=== PATIENT | male | born 1980 | race African-American/Black ===

== ENCOUNTER 2017-02-28 00:11 | Inpatient (IN) | payer MEDICAID, OTHER ==
[~2017-02-28] VITALS: Ht 152.4 cm; Wt 28.1 kg
[~2017-02-28 00:11] MED LIST: IRON; VITAMINS
[2017-02-28] MEDS ORDERED: PIPERACILLIN/TAZ 3.375G PREMIX 50 ML IV ONE (01:15)
[2017-02-28] MEDS ORDERED: SODIUM CHLORIDE 0.9% 1000ML BAG (SEPSIS BOLUS) IV ONE (01:15)
[2017-02-28] MEDS ORDERED: ACETAMINOPHEN 325MG TABLET PO ONE (01:15)
[2017-02-28] MEDS ORDERED: VANCOMYCIN 1 G PREMIX 200 ML IV ONE (01:15)
[2017-02-28 01:44] LABS: BASOPHILS % 0.4 % (0.0-2.0); EOSINOPHILS % 0.8 % (0.0-5.0); HEMATOCRIT. 35.9 % (42.0-52.0); HEMOGLOBIN. 11.5 g/dL (14.0-18.0); LYMPHOCYTES % 14.5 % (20.0-50.0); MEAN CORPUSCULAR HEMOGLOBIN 24.7 pg (28.0-32.0); MEAN PLATELET VOLUME 6.8 fl (7.4-10.4); MONOCYTES % 14.3 % (2.0-8.0); PLATELET 278 x1000/uL (130-400); RED BLOOD CELL COUNT 4.66 mill/uL (4.7-6.1); RED CELL DISTRIBUTION WIDTH 15.5 % (11.6-14.6)
[2017-02-28 02:01] LABS: CARBON DIOXIDE 30 mEq/L (21-32); CHLORIDE 102 mEq/L (98-107); TROPONIN I < 0.02 ng/mL (0.00-0.04)
[2017-02-28] MEDS ORDERED: POTASSIUM CHLORIDE 20MEQ TABLET SR PO ONE (03:00)
[2017-02-28 09:00] VITALS: BP 92/58
[2017-02-28] MEDS ORDERED: ENOXAPARIN 40MG/0.4ML SYR SUBCUT SCH (09:30)
[2017-02-28] MEDS ORDERED: HYDROCODONE/ACETAMINOPHEN 5/325MG TABLET PO PRN (10:00)
[2017-02-28] MEDS: PANTOPRAZOLE 40MG DR TABLET PO SCH (10:48)
[2017-02-28] MEDS: DEXT 5%/0.45% NACL KCL 20MEQ/L 1,000 ML IV SCH (11:20)
[2017-02-28 12:00] VITALS: BP 97/72
[2017-02-28] MEDS ORDERED: VANCOMYCIN 1 G PREMIX 200 ML IV SCH (12:00)
[2017-02-28] MEDS ORDERED: PIPERACILLIN/TAZ 3.375G PREMIX 50 ML IV SCH (12:00)
[2017-02-28 16:00] VITALS: BP 101/67
[2017-02-28 20:00] VITALS: BP 103/66
[2017-02-28] MEDS: PIPERACILLIN/TAZ 3.375G PREMIX 50 ML IV SCH (21:18)
[2017-02-28 23:55] VITALS: BP 109/63
[2017-03-01] MEDS: VANCOMYCIN 500 MG PREMIX 100 ML IV SCH ×2 (00:09→06:19)
[2017-03-01] MEDS: DEXT 5%/0.45% NACL KCL 20MEQ/L 1,000 ML IV SCH ×2 (00:09→12:17)
[2017-03-01 04:00] VITALS: BP 107/63
[2017-03-01] MEDS: PIPERACILLIN/TAZ 3.375G PREMIX 50 ML IV SCH ×2 (04:50→12:18)
[2017-03-01] MEDS: PANTOPRAZOLE 40MG DR TABLET PO SCH (06:19)
[2017-03-01 06:42] LABS: HEMATOCRIT. 32.1 % (42.0-52.0); HEMOGLOBIN. 10.2 g/dL (14.0-18.0); MEAN CORPUSCULAR HEMOGLOBIN 24.5 pg (28.0-32.0); MEAN CORPUSCULAR VOLUME 77.3 fL (80.0-94.0); MEAN PLATELET VOLUME 7.2 fl (7.4-10.4); PLATELET 259 x1000/uL (130-400); RED BLOOD CELL COUNT 4.15 mill/uL (4.7-6.1); RED CELL DISTRIBUTION WIDTH 15.7 % (11.6-14.6)
[2017-03-01 06:55] LABS: CARBON DIOXIDE 28 mEq/L (21-32); CHLORIDE 109 mEq/L (98-107)
[2017-03-01 08:00] VITALS: BP 98/67
[2017-03-01] MEDS ORDERED: ENOXAPARIN 30MG/0.3ML SYR SUBCUT SCH (09:00)
[2017-03-01 09:07] LABS: CLARITY URINE CLOUDY (CLEAR); COLOR URINE YELLOW (YELLOW); GLUCOSE URINE NEGATIVE (NEGATIVE); KETONES URINE NEGATIVE (NEGATIVE); LEUKOCYTE ESTERASE URINE 3+ (NEGATIVE); NITRITE URINE NEGATIVE (NEGATIVE); OCCULT BLOOD URINE 2+ (NEGATIVE); PH URINE 5.5 (4.5-8.0); PROTEIN URINE 1+ (NEGATIVE); SPECIFIC GRAVITY URINE 1.018 (1.005-1.030); UROBILINOGEN URINE 0.2 E.U./dL (0.2-1.0)
[2017-03-01 10:14] LABS: PLATELET ESTIMATE NORMAL
[2017-03-01] MEDS ORDERED: POTASSIUM CHLORIDE 20MEQ TABLET SR PO NR (11:00)
[2017-03-01] MEDS ORDERED: LIDOCAINE HCL 1% 20ML VIAL (Pyxis) INJ INFIL NR (11:00)
[2017-03-01 12:00] VITALS: BP 105/69
[2017-03-01 14:16] VITALS: BP 105/69
[2017-03-01] MEDS ORDERED: VANCOMYCIN 750 MG PREMIX 150 ML IV SCH (15:00)
[2017-03-01 16:00] VITALS: BP 100/72
[2017-03-01] MEDS ORDERED: SODIUM HYPOCHLORITE 0.125% 473ML SOLUTION TOP SCH (18:30)
== END 2017-03-01 17:55 | disposition home or self-care (01) | DRG 380 ==
LOC: ER 00:22 → EDBEDREQ 01:20 → 8WST 03:30 → EDBEDREQ 03:35 → EDBEDREQSVC 06:39 → ENRESERV 07:00
PROVIDERS: ADMIT Internal Medicine; ATTEND Internal Medicine
DX: L89.159 Pressure ulcer of sacral region, unspecified stage (principal); L89.309 Pressure ulcer of unspecified buttock, unspecified stage; G82.20 Paraplegia, unspecified; R00.0 Tachycardia, unspecified; E87.6 Hypokalemia; D64.9 Anemia, unspecified; Z74.01 Bed confinement status; Z89.522 Acquired absence of left knee; Z89.521 Acquired absence of right knee
CPT/HCPCS: 36415; 71010; 80048; 80053; 80202; 81001; 82962; 83605; 84484; 85025; 87040; 87070; 87077; 87086; 87186; 87205; 96365; 96366; 96367; 99285; J1650; J2543; J3370; J3490; J7030; J7040

== ENCOUNTER 2017-04-23 22:23 | Observation (INO) | payer OTHER ==
[~2017-04-23] VITALS: Ht 152.4 cm; Wt 54.4 kg
[2017-04-24] MEDS ORDERED: SODIUM CHLORIDE 0.9% 1,000 ML IV ONE (02:38)
[2017-04-24 03:03] LABS: BASOPHILS % 0.5 % (0.0-2.0); EOSINOPHILS % 1.9 % (0.0-5.0); HEMATOCRIT. 23.6 % (42.0-52.0); HEMOGLOBIN. 7.4 g/dL (14.0-18.0); LYMPHOCYTES % 25.1 % (20.0-50.0); MEAN CORPUSCULAR HEMOGLOBIN 23.5 pg (28.0-32.0); MEAN CORPUSCULAR VOLUME 74.5 fL (80.0-94.0); MEAN PLATELET VOLUME 5.8 fl (7.4-10.4); NEUTROPHILS % 61.5 % (40.0-76.0); PLATELET 627 x1000/uL (130-400); RED BLOOD CELL COUNT 3.16 mill/uL (4.7-6.1); RED CELL DISTRIBUTION WIDTH 16.3 % (11.6-14.6)
[2017-04-24 03:10] LABS: INR 1.4; PROTHROMBIN TIME 14.3 sec
[2017-04-24 03:17] LABS: CARBON DIOXIDE 29 mEq/L (21-32); CHLORIDE 102 mEq/L (98-107)
[2017-04-24 03:35] LABS: CLARITY URINE TURBID (CLEAR); COLOR URINE DARK YELLOW (YELLOW); GLUCOSE URINE NEGATIVE (NEGATIVE); KETONES URINE NEGATIVE (NEGATIVE); LEUKOCYTE ESTERASE URINE 2+ (NEGATIVE); NITRITE URINE NEGATIVE (NEGATIVE); OCCULT BLOOD URINE TRACE (NEGATIVE); PH URINE >=9.0 (4.5-8.0); PROTEIN URINE 3+ (NEGATIVE); SPECIFIC GRAVITY URINE 1.031 (1.005-1.030)
[2017-04-24] MEDS: SODIUM CHLORIDE 0.9% 500 ML IV SCH (07:52)
[2017-04-24 11:05] VITALS: BP 94/58
[2017-04-24 12:00] VITALS: BP 90/50
[2017-04-24] MEDS ORDERED: ACETAMINOPHEN 325MG TABLET PO PRN (13:00)
[2017-04-24] MEDS ORDERED: HYDROCODONE/ACETAMINOPHEN 5/325MG TABLET PO PRN (13:00)
[2017-04-24 16:00] VITALS: BP 99/60
[2017-04-24 16:38] LABS: TOTAL IRON BINDING CAPACITY 128 ug/dL (250-450)
[2017-04-24 17:13] LABS: FOLIC ACID (FOLATE) SERUM 5.9 ng/mL (>5.38)
[2017-04-24 20:00] VITALS: BP 88/51
[2017-04-24 21:55] VITALS: BP 88/54
[2017-04-24 22:10] VITALS: BP_SYST 89; BP_SYST 90; BP_DIAS 52; BP_DIAS 54
[2017-04-25] VITALS (9 sets, daily range): BP systolic 84–101; BP diastolic 47–66
[2017-04-25] MEDS: PANTOPRAZOLE 40MG DR TABLET PO SCH ×2 (06:21→09:30)
[2017-04-25 07:08] LABS: BASOPHILS % 0.5 % (0.0-2.0); EOSINOPHILS % 4.8 % (0.0-5.0); HEMATOCRIT. 25.9 % (42.0-52.0); HEMOGLOBIN. 8.3 g/dL (14.0-18.0); LYMPHOCYTES % 28.9 % (20.0-50.0); MEAN CORPUSCULAR HEMOGLOBIN 24.6 pg (28.0-32.0); MEAN CORPUSCULAR VOLUME 76.4 fL (80.0-94.0); MEAN PLATELET VOLUME 6.2 fl (7.4-10.4); MONOCYTES % 10.3 % (2.0-8.0); NEUTROPHILS % 55.5 % (40.0-76.0); PLATELET 544 x1000/uL (130-400); RED BLOOD CELL COUNT 3.39 mill/uL (4.7-6.1); RED CELL DISTRIBUTION WIDTH 16.5 % (11.6-14.6)
[2017-04-25] MEDS ORDERED: SODIUM CHLORIDE 0.9% 500 ML IV SCH (07:45)
[2017-04-25] MEDS: SODIUM CHLORIDE 0.9% 500 ML IV SCH (08:16)
[2017-04-25] MEDS ORDERED: DOCUSATE SODIUM 250MG CAPSULE PO SCH (10:15)
[2017-04-25] MEDS ORDERED: LEVOFLOXACIN 500MG TABLET PO SCH (11:57)
[2017-04-25] MEDS: FERROUS SULFATE 325MG TABLET PO SCH ×2 (13:02→17:27)
== END 2017-04-25 19:14 | disposition home or self-care (01) ==
LOC: ER 22:23 → EDBEDREQ 04-24 06:09 → INTOOBSV 04-24 06:29 → 8WST 04-24 06:29 → EDBEDREQ 04-24 06:35 → ENRESERV 04-24 10:09
PROVIDERS: ADMIT Internal Medicine; ATTEND Internal Medicine
DX: D62 Acute posthemorrhagic anemia (principal); G82.20 Paraplegia, unspecified; L89.159 Pressure ulcer of sacral region, unspecified stage; D75.89 Other specified diseases of blood and blood-forming organs; K59.00 Constipation, unspecified; D50.9 Iron deficiency anemia, unspecified; Z86.73 Personal history of transient ischemic attack (TIA), and cerebral infarction without residual deficits; W34.00XS Accidental discharge from unspecified firearms or gun, sequela
CPT/HCPCS: 36415; 71010; 80053; 81001; 82607; 82728; 82746; 83540; 83550; 85025; 85610; 86850; 86870; 86900; 86901; 86920; 87040; 87070; 87086; 87205; 93005; 96360; 96361; 99285; G0378; J7030; J7050; P9016; 36430; 96374; 96375

== ENCOUNTER 2019-04-07 17:07 | Emergency (ER) | payer MEDICAID, OTHER ==
[~2019-04-07] VITALS: Ht 91.4 cm; Wt 56.0 kg
[2019-04-07] MEDS ORDERED: CEFTRIAXONE SODIUM 250 MG/VIAL IM ONE (18:00)
[2019-04-07] MEDS ORDERED: AZITHROMYCIN 500 MG TABLET PO ONE (18:00)
[2019-04-07] MEDS ORDERED: LIDOCAINE HCL/PF 1% 10 MG/ML 5ML VIAL IJ ONE (18:00)
[2019-04-07 18:40] VITALS: BP 123/79
[2019-04-07 19:17] LABS: CLARITY URINE CLOUDY (CLEAR); COLOR URINE YELLOW (YELLOW); KETONES URINE NEGATIVE (NEGATIVE); LEUKOCYTE ESTERASE URINE 3+ (NEGATIVE); NITRITE URINE POSITIVE (NEGATIVE); OCCULT BLOOD URINE 1+ (NEGATIVE); PROTEIN URINE NEGATIVE (NEGATIVE); SPECIFIC GRAVITY URINE 1.011 (1.005-1.030)
[2019-04-10 04:06] LABS: CHLAMYDIA TRACHOMATIS NAA Negative (Negative); NEISSERIA GONORRHOEAE NAA Negative (Negative)
== END 2019-04-07 18:50 | disposition home or self-care (01) ==
LOC: ER 17:22
DX: Z20.2 Contact with and (suspected) exposure to infections with a predominantly sexual mode of transmission (principal); I69.351 Hemiplegia and hemiparesis following cerebral infarction affecting right dominant side; Z87.828 Personal history of other (healed) physical injury and trauma; Z99.3 Dependence on wheelchair
CPT/HCPCS: 81003; 87491; 87591; 96372; 99283; J0696; J3490; Z7610

== ENCOUNTER 2020-12-07 12:45 | Emergency (ER) | payer MEDICAID ==
[~2020-12-07] VITALS: Ht 137.2 cm; Wt 65.0 kg
[2020-12-07] MEDS ORDERED: DOXYCYCLINE HYCLATE 100 MG/VIAL IV ONE (16:00)
[2020-12-07] MEDS ORDERED: CEFTRIAXONE 1 G PREMIX 50 ML IV ONE (16:00)
[2020-12-07] MEDS ORDERED: DOXYCYCLINE 100MG in DEXTROSE 5% WATER 100ML IV SCH (16:00)
[2020-12-07] MEDS ORDERED: SODIUM CHLORIDE 0.9% 1,000 ML IV ONE (16:00)
[2020-12-07 16:18] LABS: BASOPHILS % 0.5 % (0.0-2.0); HEMATOCRIT. 44.3 % (42.0-52.0); HEMOGLOBIN. 13.8 g/dL (14.0-18.0); LYMPHOCYTES % 27.7 % (20.0-50.0); MEAN CORPUSCULAR HEMOGLOBIN 25.1 pg (28.0-32.0); MEAN CORPUSCULAR VOLUME 80.5 fL (80.0-94.0); MEAN PLATELET VOLUME 7.6 fl (7.4-10.4); NEUTROPHILS % 54.8 % (40.0-76.0); PLATELET 222 x1000/uL (130-400); RED BLOOD CELL COUNT 5.51 mill/uL (4.7-6.1); RED CELL DISTRIBUTION WIDTH 14.5 % (11.6-14.6)
[2020-12-07 16:25] LABS: CHLORIDE 108 mEq/L (98-107)
[2020-12-07 17:08] LABS: CLARITY URINE TURBID (CLEAR); COLOR URINE YELLOW (YELLOW); KETONES URINE NEGATIVE (NEGATIVE); LEUKOCYTE ESTERASE URINE 3+ (NEGATIVE); NITRITE URINE NEGATIVE (NEGATIVE); OCCULT BLOOD URINE 1+ (NEGATIVE); PH URINE 6.5 (4.5-8.0); PROTEIN URINE TRACE (NEGATIVE); SPECIFIC GRAVITY URINE 1.012 (1.005-1.030)
[2020-12-07] MEDS ORDERED: CIPR-263 PO (17:33)
[2020-12-07] MEDS ORDERED: DOXY100C2 MT (17:33)
[2020-12-07 19:58] VITALS: BP 109/67
== END 2020-12-07 19:59 | disposition home or self-care (01) ==
LOC: ER 13:00
DX: N39.0 Urinary tract infection, site not specified (principal); A64 Unspecified sexually transmitted disease; Z86.73 Personal history of transient ischemic attack (TIA), and cerebral infarction without residual deficits; Z89.9 Acquired absence of limb, unspecified
CPT/HCPCS: 36415; 71045; 80053; 81003; 85025; 87077; 87086; 87186; 93005; 96365; 96366; 96368; 99285; J0696; J3490; J7030; J7060; Z7610